=== PATIENT | female | born 1950 | race Caucasian/White ===

== ENCOUNTER → 2016-03-26 | Outpatient (CLI) | payer MEDICARE ==
[~2016-03-26] MED LIST: BUPR150T20 PO; ESTR0.3T PO; EZET10TA23 PO; GEMF600T3 PO; LEVO50TA63 PO; OMEP40CA36 PO; ONDA4TAB11 PO; PNT40TEC PO; TRAM50TA2 PO
--- NOTE | 2016-03-26 11:47 | Diagnostic Imaging Report ---
EXAMINATION: Left lower extremity duplex venous ultrasound. TECHNIQUE: DVT protocol. Multiple sonographic images with color Doppler and waveform interrogation were performed of the left lower extremity veins with compression and augmentation maneuvers. INDICATION: Left leg pain. Lump lateral to the knee. FINDINGS: The left lower extremity veins from the groin to below the knee veins were examined with normal color-flow, compressibility and waveform demonstrated. The great saphenous vein is patent. There is a 4.2 x 1 x 4 cm hypoechoic lesion seen in the deeper aspect of the subcutaneous fat the in the lateral aspect of the knee region likely related to a hematoma. It corresponds to the palpable area. No internal vascularity is seen. IMPRESSION: No evidence of DVT in the left lower extremity. Lateral subcutaneous hypoechoic lesion about the knee level is likely related to hematoma. Dictated by: Dictated on workstation # [id number]
== END ==
LOC: RAD 10:47
PROVIDERS: ATTEND Physician Assistant Medical
DX: M79.605 Pain in left leg (principal)

== ENCOUNTER 2016-08-25 05:32 | Outpatient (CLI) | payer MEDICARE ==
[~2016-08-25] VITALS: Ht 162.6 cm; Wt 64.4 kg
[2016-08-25] MEDS ORDERED: OMEP20TA7 PO (15:07)
[2016-08-25] MEDS ORDERED: ATOR40TA70 PO (15:07)
== END 2016-08-25 15:08 ==
LOC: PREOP 05:32
PROVIDERS: ATTEND Surgery
DX: Z01.818 Encounter for other preprocedural examination (principal); Z87.11 Personal history of peptic ulcer disease

== ENCOUNTER 2016-08-30 08:53 | Day surgery (SDC) | payer MEDICARE ==
[~2016-08-30] VITALS: Ht 162.6 cm; Wt 64.4 kg
[~2016-08-30 08:53] MED LIST changes: +ATOR40TA70 PO; +OMEP20TA7 PO
[2016-08-30] MEDS ORDERED: NS IV 500 ML 500 ML IV PRN (09:15)
[2016-08-30] MEDS ORDERED: FLUMAZENIL (ROMAZICON) 0.1 MG/ML 5 ML VIAL INJ PRN (09:15)
[2016-08-30] MEDS ORDERED: NALOXONE 0.4 MG/ML 1 ML (NARCAN) VIAL IVP PRN (09:15)
[2016-08-30 09:24] VITALS: BP 118/82
[2016-08-30] MEDS ORDERED: fentaNYL INJECTION 100 MCG/2 ML AMP ONE (10:04)
[2016-08-30] MEDS ORDERED: MIDAZOLAM 2 MG/2 ML (VERSED) VIAL ONE ×4 (10:04)
[2016-08-30] MEDS ORDERED: HURRICAINE EXT TUBE (BENZOCAINE) ONE (10:05)
[2016-08-30] MEDS: fentaNYL INJECTION 100 MCG/2 ML AMP IVP PRN ×2 (10:22→10:25)
[2016-08-30] MEDS: MIDAZOLAM 2 MG/2 ML (VERSED) VIAL IVP PRN ×2 (10:24→10:29)
--- NOTE | 2016-08-30 10:48 | Conscious Sedation/ASA ---
Conscious Sedation Pre-Proced Time Reviewed: 09:58 ASA Class: 2 Airway Mallampati Classification: (white earth appropriate class) I. II. III, IV Lungs Heart ASA score ASA 1: a normal healthy patient ASA 2: a patient with a mild systemic disease (mid diabetes, controlled hypertension, obesity ASA 3: a patient with a severe systemic disease that limits activity (angina , COPD, prior Myocardial infarction) ASA 4: a patient with an incapacitating disease that is a constant threat to life (CHF, renal failure) ASA 5: a moribund patient not expected to survive 24 hrs. (ruptured aneurysm) ASA 6: a declared brain patient whose organs are being harvested. For emergent operations, add the letter E after the classification Grade 1 Sedation Plan: Discussed options with patient/fam Note The patient is an appropriate candidate to undergo the planned procedure, sedation, and anesthesia. The patient immediately re-assessed prior to indication. JAIR RASHID MD Aug 30, 2016 10:48 am
--- NOTE | 2016-08-30 10:49 | Endoscopy Procedure Report ---
Endoscopy Report Date: Aug 30, 2016 Preoperative Diagnosis: gastric ulcers Study Performed: Upper Endoscopy Procedure Instrument: Endoscope Endo Procedure/Findings Findings 1.: Gastric Ulcer Copy Copies To 1: RADHA MOON MD, XAVIER M MD Aug 30, 2016 10:49 am
--- NOTE | 2016-08-30 10:50 | Discharge Inst-Simple/Standard ---
Discharge Inst-Standard Discharge Medications New, Converted or Re-Newed RX: Other Patient Instructions/Follow Up Plan of Care/Instructions/FU: to increase omeprazole to 40 mg twice a day. Follow-up with her primary Activity as Tolerated: Yes Discharge Diet: No Restrictions JAIR RASHID MD Aug 30, 2016 10:50 am
[2016-08-30 11:00] VITALS: BP 108/82
[2016-08-30] MEDS ORDERED: HURRICAINE EXT TUBE (BENZOCAINE) XX ONE (11:00)
[2016-08-30 11:30] VITALS: BP 117/72
[2016-08-30 11:49] VITALS: BP 117/72
--- NOTE | 2016-08-30 22:00 | OPERATIVE REPORT ---
DATE OF SERVICE: 08/30/2016 PROCEDURE: Upper GI endoscopy with biopsy of gastric ulcer. SURGEON: Jair Rashid MD INDICATION FOR PROCEDURE: This lady was found to have multiple distal gastric ulcers a few years ago. She came in for a followup upper endoscopy. Informed consent was obtained after reviewing the procedure in detail. DESCRIPTION OF PROCEDURE: She was placed in left lateral decubitus position and her vital signs were monitored. Conscious sedation was achieved using Versed and fentanyl. The flexible gastroscope was introduced down the esophagus, past the stomach, into the proximal duodenum. FINDINGS: ESOPHAGUS: Quite tortuous, normal anatomic variation. STOMACH: 1. A 2 mm ulcer at the antrum. Biopsy was obtained. 3. Scarring around the ulcer due to healing of previously noted multiple ulcers. DUODENUM: Normal. She tolerated the procedure well and was taken back to the nursing area in a stable condition. IMPRESSION: Previous gastric ulcers. Much improved. A very small gastric ulcer persistent. Continue proton pump inhibitor therapy at twice a day dose. Job ID: [id number] DocumentID: [id number] Dictated Date: 08/30/2016 10:47:39 [employer] Work[employer] Date: 08/30/2016 15:36:56 Dictated By: JAIR RASHID MD MTDD
--- OUTSIDE RECORDS SUMMARY | 2016-08-30 22:54 | XMS REPORT | Continuity of Care Document ---
Author Author [facility] Organization [facility] Address Unknown Phone Unavailable Allergies Active Description Code Type Severity Reaction Onset Reported/Identified Relationship to Patient Clinical Status Yes No Known Drug Allergies [id number] Drug Allergy Unknown N/ A 11/09/2013 Yes cephalexin [id number] Drug Allergy Unknown NAUSEA 08/25/2016 Medications Problems Date Dx Coded Attending Type Code Diagnosis Diagnosed By 11/09/2013 GAY BONILLA, JAIR Ny Ot 531.70 CHR STOMACH ULCER NOS 02/18/2014 JAIR RASHID MD Ot 531.70 CHR STOMACH ULCER NOS 06/20/2014 JAIR RASHID MD Ot V72.84 06/20/2014 JAIR RASHID MD Ot V72.84 12/06/2014 SARA RODARTE Ot 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 [[place] ] 12/06/2014 SARA RODARTE Ot S83.92XA SPRAIN OF UNSPECIFIED SITE OF LEFT KNEE, 12/06/2014 SARA RODARTE Ot V87.8XXA [facility]SP[facility] 12/06/2014 SARA RODARTE Ot Y99.8 OTHER EXTERNAL CAUSE STATUS 03/26/2016 JAIR RASHID MD Ot V72.84 EXAM PRE-OPERATIVE NOS 03/26/2016 JAIR RASHID MD Ot V72.84 EXAM PRE-OPERATIVE NOS 03/29/2016 PABLO JENNINGS Ot M79.605 PAIN IN LEFT LEG 03/31/2016 PABLO JENNINGS Ot M79.605 PAIN IN LEFT LEG 04/16/2016 PABLO JENNINGS Ot M79.605 PAIN IN LEFT LEG 04/21/2016 PALBO JENNINGS Ot M79.605 PAIN IN LEFT LEG 08/26/2016 JAIR RASHID MD Ot Z01.818 ENCOUNTER FOR OTHER PREPROCEDURAL EXAMIN 08/26/2016 JAIR RASHID MD Ot Z87.11 PERSONAL HISTORY OF PEPTIC ULCER DISEASE Procedures Results Encounters ACCT No. Visit Date/Time Discharge Status Pt. Type Provider Facility Loc./Unit Complaint [id number] 08/25/2016 05:32:00 2016 15:08:00 DIS Outpatient JAIR RASHID MD [facility] PREOP HISTORY OF ULCERS [id number] 12/06/2014 11:18:00 2014 14:07:00 DIS Emergency SARA RODARTE [facility] ER L LEG PAIN [id number] 02/18/2014 08:36:00 2013 11:10:00 DIS Outpatient JAIR RASHID MD [facility] GASTRIC ULCERS [id number] 02/14/2014 05:49:00 2013 23:59:59 CLS Outpatient JAIR RASHID MD [facility] PREOP GASTRIC ULCERS [id number] 11/09/2013 12:08:00 2013 14:45:00 DIS Outpatient JAIR RASHID MD [facility] MELENA [id number] 11/08/2013 12:04:00 2013 23:59:59 CLS Outpatient JAIR RASHID MD [facility] PREOP MELENA [id number] 08/30/2016 10:45:00 PEN Preadmit JAIR RASHID MD [facility] ENDO HISTORY OF ULCERS [id number] 03/26/2016 10:47:00 ACT Outpatient PABLO JENNINGS [facility] RAD LT LEG PAIN
== END 2016-08-30 12:10 | disposition home or self-care (01) ==
LOC: ENDO 08:53
PROVIDERS: ATTEND Surgery
DX: K25.9 Gastric ulcer, unspecified as acute or chronic, without hemorrhage or perforation (principal); E78.5 Hyperlipidemia, unspecified; E03.9 Hypothyroidism, unspecified; M19.90 Unspecified osteoarthritis, unspecified site

== ENCOUNTER → 2021-10-29 | Outpatient (CLI) | payer MEDICARE ==
[~2021-10-29] MED LIST changes: +ACET-2267 PO; +ASPI-999 PO; +BUPR150T24 PO; +BUPR150T28 PO; +GEMF600T88 PO; +LEVO50TA6 PO; +NFBIOT1000 PO; +OMEP20TA56 PO; -OMEP20TA7 PO; +OMG1KC PO; -TRAM50TA2 PO; +TRM50T PO
--- NOTE | 2021-10-29 16:17 | Diagnostic Imaging Report ---
EXAMINATION: MRI left lower extremity from 10/29/2021. TECHNIQUE: Multiplanar, multisequence non contrast-enhanced MRI of the left lower extremity was accomplished. INDICATION: Palpable abnormality in the left lower extremity. FINDINGS: There is a BB overlying the site of palpable concern. Immediately underlying the BB, there is diffuse subcutaneous soft tissue edema with a more focal subcutaneous lesion demonstrating central T1 and T2 hyperintensity. A peripheral rim of T2 hypointensity is noted. This lesion measures approximately 8 x 4 x 9 mm in size. This overlies the musculature within the anterior compartment of the extremity without intramuscular abnormality appreciated. The visualized osseous structures appear unremarkable. The Achilles tendon is intact. Plantar fascia is normal in appearance. Flexor and extensor tendons appear intact. Peroneal tendons demonstrate a longitudinal split tear of the peroneus brevis tendon at the level of the malleolus. More distally, it appears intact and demonstrates normal attachment at the base of the fifth metatarsal. The peroneus longus tendon appears intact. The anterior talofibular ligament and posterior talofibular ligament are intact. The anterior and posterior inferior tibiofibular ligaments are intact. The deltoid ligament is intact. Calcaneofibular ligament is intact. IMPRESSION: 1. Small nonspecific well-circumscribed lesion within the subcutaneous soft tissues at the site of concern. Given the associated T1 hyperintensity, this could represent a hematoma containing blood products. Other soft tissue masses are not excluded at this time. If this does not resolve clinically, follow-up with contrast recommended. Surrounding reactive edema is noted. 2. Longitudinal split tear of the peroneus brevis tendon without complete discontinuity. Remaining visualized tendons and ligaments are intact. Dictated by: Dictated on workstation # [id number]
== END ==
LOC: RAD 12:34
PROVIDERS: ATTEND Podiatrist
DX: S86.312A Strain of muscle(s) and tendon(s) of peroneal muscle group at lower leg level, left leg, initial encounter (principal); X58.XXXA Exposure to other specified factors, initial encounter
CPT/HCPCS: 73721